=== PATIENT | female | born 1960 | race Caucasian/White ===

== ENCOUNTER 2019-11-19 11:59 | Day surgery (SDC) | payer MEDICAID ==
[2019-11-12 15:21] LABS: EOSINOPHILS # (AUTO) 0.1 X10'3 (0-0.9); LYMPHOCYTES # (AUTO) 1.1 X10'3 (1.1-4.8); MEAN CORPUSCULAR HEMOGLOBIN 24.5 PG (27.0-31.0); MEAN CORPUSCULAR HGB CONC 31.1 g/dL (33.0-36.5); MEAN CORPUSCULAR VOLUME 78.6 FL (78-98); MEAN PLATELET VOLUME 7.5 FL (7.4-10.4); MONOCYTES # (AUTO) 0.3 X10'3 (0-0.9); MONOCYTES % (AUTO) 7.4 % (2-12); NEUTROPHILS # (AUTO) 2.7 X10'3 (1.8-7.7); NEUTROPHILS % (AUTO) 63.6 % (42-75); PRE OP HEMATOCRIT 28.1 % (35.0-45.0); PRE OP PLATELET COUNT 344 X10'3 (140-440); RED BLOOD COUNT 3.57 X10'6 (4.20-5.60); RED CELL DISTRIBUTION WIDTH 20.2 % (11.5-14.5)
[2019-11-12 15:23] LABS: PRE OP HEMOGLOBIN 8.7 g/dL (12.0-16.0)
[2019-11-12 15:41] LABS: ALBUMIN 3.6 G/DL (3.4-5.0); ALKALINE PHOSPHATASE 80 IU/L (46-116); BLOOD UREA NITROGEN 17 MG/DL (7-18); CALCIUM 8.4 MG/DL (8.5-10.1); CHLORIDE 105 MMOL/L (99-107); CREATININE 0.85 MG/DL (0.40-0.90); PRE OP ALT 18 U/L (30-65); PRE OP ANION GAP 9 (8-16); PRE OP AST 15 U/L (10-37); PRE OP BILIRUB, TOTAL 0.2 MG/DL (0.0-1.0); PRE OP GLUCOSE 94 MG/DL (70-104); PRE OP POTASSIUM 3.7 MMOL/L (3.4-5.1); PRE OP SODIUM 141 MMOL/L (135-145); TOTAL CARBON DIOXIDE 27.3 MMOL/L (24-32); TOTAL PROTEIN 7.3 G/DL (6.4-8.2); eGFR 69 ML/MIN
[2019-11-12 15:49] LABS: ANISOCYTOSIS 3+; MICROCYTOSIS 1+; PLATELET ESTIMATE NORMAL
[2019-11-12 15:50] LABS: HYPOCHROMASIA 1+
[~2019-11-19] VITALS: Ht 157.5 cm; Wt 64.4 kg
[2019-11-19] VITALS (12 sets, daily range): BP systolic 129–167; BP diastolic 68–84
[~2019-11-19 11:59] MED LIST: CYAN10006 IM; FERR325T28 PO; OMEP20TA23 PO; SUCR1TAB34 PO; SYN0.088T PO; VANCOMYCIN INJ 1000 MG in NORMAL SALINE 250ml IV.SOLN IV ONE; ceFAZolin 2gm in dextrose, iso 50 ML IV ONE; famotidine 20mg tablet PO ONE; ringers solution, lacted 1,000 ML IV SCH
[2019-11-19] MEDS ORDERED: LIDOcaine 0.5% (5mg/ml) 50ml vial ONE (13:03)
[2019-11-19] MEDS ORDERED: methylPREDNISolone sod succ 125mg/2ml vial ONE (14:02)
[2019-11-19] MEDS ORDERED: BUPIVAcaine/PF 2.5 mg/ml (0.25%) 30ml vial ONE (14:02)
[2019-11-19] MEDS ORDERED: midazolam 2 mg/2 ml injection ONE (14:13)
[2019-11-19] MEDS ORDERED: fentaNYL/PF 50MCG/1 ML 2ML syringe ONE (14:13)
[2019-11-19] MEDS ORDERED: propofol inj 20 ML IV ONE (14:43)
--- NOTE | 2019-11-19 14:54 | NUR ---
RECEIVED FROM OR VIA [facility] ACCOMPANIED BY ANESTHESIOLOGIST DR PLAZA, REPORT GIVEN. PT DROWSY BUT AWAKENS EASILY WITH NO COMPLAINT OF PAIN. 20 GAUGE PIV L WRIST PATENT AND RUNNING LR AT 100 ML/HR. R WRIST DRESSING OF XEROFORM, 4X4, WEBRIL, BIAS AND SPLINT CDI. GOOD CAP REFILL, SKIN PINK AND WARM, PPULSES PRESENT (UNABLE TO PALPATE R RADIAL COVERED), PAVON, ABD SOFT, RUE ELEVATED WITH ICE APPLIED.
[2019-11-19] MEDS ORDERED: proCHLORperazine 10 MG/2 ml inj IV PRN (14:55)
[2019-11-19] MEDS ORDERED: ringers solution, lacted 1,000 ML IV SCH (14:55)
[2019-11-19] MEDS ORDERED: morphine 2 MG/ML inj. syringe IV PRN (14:55)
[2019-11-19] MEDS ORDERED: ondansetron/PF 4mg/2ml inj IV PRN (14:55)
[2019-11-19] MEDS ORDERED: morphine 4 MG/ML inj SYRINge IV PRN (14:55)
[2019-11-19] MEDS ORDERED: HYDROmorphone inj. 0.5 MG/0.5 ML DISP.SYRIN IV PRN ×2 (14:55)
[2019-11-19] MEDS ORDERED: meperidine/PF 25mg/ml syringe IV PRN (14:55)
[2019-11-19] MEDS ORDERED: acetaminophen 1,000mg/100ml IV 100 ML IV PRN (14:55)
--- NOTE | 2019-11-19 16:44 | NUR ---
PT AWAKE AND ALERT WITH NO COMPLAINT OF PAIN. 20 GAUGE PIV L WRIST DC/D CATH TIP INTACT. R WRIST DRESSING OF XEROFORM, 4X4, WEBRIL, BIAS AND SPLINT CDI. GOOD CAP REFILL, SKIN PINK AND WARM, PPULSES PRESENT (UNABLE TO PALPATE R RADIAL COVERED), PAVON, ABD SOFT, VSS. TOLERATING FLUIDS, ABLE TO DRESS SELF, AMBULATE, AND VOID. DISCHARGE INSTRUCTIONS GIVEN AND PT VERBALIZED UNDERSTANDING. TRANSPORTED VIA WHEELCHAIR TO FRIEND IN PRIVATE VEHICLE TO HOME.
== END 2019-11-19 16:44 | disposition home or self-care (01) ==
LOC: PAS 11:59 → EDBD 13:30 → PAS 16:44
PROVIDERS: ATTEND Orthopaedic Surgery
DX: G56.01 Carpal tunnel syndrome, right upper limb (principal); G56.21 Lesion of ulnar nerve, right upper limb; I10 Essential (primary) hypertension; D64.9 Anemia, unspecified; F31.9 Bipolar disorder, unspecified; E03.9 Hypothyroidism, unspecified; G47.33 Obstructive sleep apnea (adult) (pediatric); E66.8 Other obesity; Z68.26 Body mass index [BMI] 26.0-26.9, adult; Z98.890 Other specified postprocedural states; Z90.721 Acquired absence of ovaries, unilateral; F17.210 Nicotine dependence, cigarettes, uncomplicated; Z88.1 Allergy status to other antibiotic agents; Z88.2 Allergy status to sulfonamides; Z79.899 Other long term (current) drug therapy; Z20.828 Contact with and (suspected) exposure to other viral communicable diseases; Z87.442 Personal history of urinary calculi; Z87.19 Personal history of other diseases of the digestive system
CPT/HCPCS: 36415; 64719; 64721; 71046; 80053; 82948; 85025; 87635; 93005; A6222; J2001; J2250; J2704; J2930; J3010; J3370; J3490; 85008; A4215; A6449; A7000; J7120

== ENCOUNTER 2020-01-21 13:53 | Day surgery (SDC) | payer MEDICAID ==
[2020-01-13 16:15] LABS: BASOPHILS # (AUTO) 0.1 X10'3 (0-0.2); BASOPHILS % (AUTO) 1.1 % (0-1); EOSINOPHILS # (AUTO) 0.1 X10'3 (0-0.9); EOSINOPHILS % (AUTO) 1.5 % (0-6); LYMPHOCYTES # (AUTO) 1.2 X10'3 (1.1-4.8); MEAN CORPUSCULAR HEMOGLOBIN 22.9 PG (27.0-31.0); MEAN CORPUSCULAR HGB CONC 31.4 g/dL (33.0-36.5); MEAN CORPUSCULAR VOLUME 72.8 FL (78-98); MEAN PLATELET VOLUME 7.4 FL (7.4-10.4); MONOCYTES # (AUTO) 0.4 X10'3 (0-0.9); MONOCYTES % (AUTO) 8.7 % (2-12); NEUTROPHILS # (AUTO) 2.9 X10'3 (1.8-7.7); NEUTROPHILS % (AUTO) 62.7 % (42-75); PRE OP HEMATOCRIT 25.6 % (35.0-45.0); PRE OP PLATELET COUNT 324 X10'3 (140-440); RED BLOOD COUNT 3.51 X10'6 (4.20-5.60)
[2020-01-13 16:29] LABS: ALBUMIN 3.6 G/DL (3.4-5.0); ALBUMIN/GLOBULIN RATIO 0.9 (1.1-1.5); ALKALINE PHOSPHATASE 84 IU/L (46-116); BLOOD UREA NITROGEN 17 MG/DL (7-18); BUN/CREATININE RATIO 17.2 (6.6-38.0); CALCIUM 9.3 MG/DL (8.5-10.1); CHLORIDE 108 MMOL/L (99-107); CREATININE 0.99 MG/DL (0.40-0.90); PRE OP ALT 24 U/L (30-65); PRE OP ANION GAP 4 (8-16); PRE OP AST 17 U/L (10-37); PRE OP BILIRUB, TOTAL 0.2 MG/DL (0.0-1.0); PRE OP GLUCOSE 81 MG/DL (70-104); PRE OP POTASSIUM 3.8 MMOL/L (3.4-5.1); PRE OP SODIUM 143 MMOL/L (135-145); TOTAL CARBON DIOXIDE 30.9 MMOL/L (24-32); TOTAL PROTEIN 7.4 G/DL (6.4-8.2); eGFR 58 ML/MIN
[~2020-01-21] VITALS: Ht 157.5 cm; Wt 66.2 kg
[~2020-01-21 13:53] MED LIST changes: -FERR325T28 PO; +LEVO150T8 PO; -SYN0.088T PO; -ceFAZolin 2gm in dextrose, iso 50 ML IV ONE; +cefazolin/dext.iso 2gm/50ml 50 ML IV ONE
[2020-01-21 14:00] VITALS: BP 149/77
[2020-01-21] MEDS ORDERED: ondansetron/PF 4mg/2ml inj IV PRN (14:50)
[2020-01-21] MEDS ORDERED: acetaminophen 1,000mg/100ml IV 100 ML IV PRN (14:50)
[2020-01-21] MEDS ORDERED: morphine 2 MG/ML inj. syringe IV PRN (14:50)
[2020-01-21] MEDS ORDERED: proCHLORperazine 10 MG/2 ml inj IV PRN (14:50)
[2020-01-21] MEDS ORDERED: ringers solution, lacted 1,000 ML IV SCH (14:50)
[2020-01-21] MEDS ORDERED: hydrALAZINE 20mg/ml inj. IV PRN (14:50)
[2020-01-21] MEDS ORDERED: morphine 4 MG/ML inj SYRINge IV PRN (14:50)
[2020-01-21] MEDS ORDERED: meperidine/PF 25mg/ml syringe IV PRN ×3 (14:50)
[2020-01-21] MEDS ORDERED: labetalol 20mg/4ml (5mg/ml) syringe IV PRN (14:50)
[2020-01-21] MEDS ORDERED: LIDOcaine 0.5% (5mg/ml) 50ml vial ONE (15:39)
[2020-01-21] MEDS ORDERED: BUPIVAcaine/PF 2.5 mg/ml (0.25%) 30ml vial ONE (16:00)
[2020-01-21] MEDS ORDERED: methylPREDNISolone sod succ 125mg/2ml vial ONE (16:00)
[2020-01-21] MEDS ORDERED: fentaNYL/PF 50MCG/1 ML 2ML syringe ONE (16:45)
[2020-01-21] MEDS ORDERED: midazolam 2 mg/2 ml injection ONE (16:46)
[2020-01-21] MEDS ORDERED: propofol inj 20 ML IV ONE (16:58)
[2020-01-21 17:38] VITALS: BP 139/77
--- NOTE | 2020-01-21 17:38 | NUR ---
VSS, FOLLOWS COMMANDS. LEFT UE ELEVATED ON A PILLOW WITH ICE TO WRIST. LEFT FA/HAND SPLINT WITH MARY WRAPS CDI. MOVES LEFT FINGERS/THUMB WELL WITH [employer] ATTENDANT. DENIES PAIN WHEN ASKED. IV RIGHT FA #22 PATENT LR 100MLS/HR. Addendum: 01/21/20 at 1810 by Rekha Vazquez RN Amended: Links added.
[2020-01-21 17:48] VITALS: BP 142/82
[2020-01-21 17:58] VITALS: BP 154/83
[2020-01-21 18:08] VITALS: BP 153/82
[2020-01-21 18:18] VITALS: BP 148/80
--- NOTE | 2020-01-21 18:48 | NUR ---
VSS. STATES READINESS TO DC HOME. AMB TO BR-VOID QS. LEFT FINGERS WITH GOOD MOVEMENT AND LADLE POURER. IV DC'D WITH CANNULA INTACT AND PRESSURE DSG APPLIED. DC INSTRUCTIONS REVIEWED WITH PT WHO VERBALIZES UNDERSTANDING. DC HOME VIA WC TO PVT AUTO WITH JUYD TO RECEIVE. Addendum: 01/21/20 at 1858 by Rekha Vazquez RN Amended: Links added.
== END 2020-01-21 18:48 | disposition home or self-care (01) ==
LOC: PRE-OP 13:53
PROVIDERS: ATTEND Orthopaedic Surgery
DX: G56.02 Carpal tunnel syndrome, left upper limb (principal); G56.22 Lesion of ulnar nerve, left upper limb; G47.33 Obstructive sleep apnea (adult) (pediatric); I10 Essential (primary) hypertension; F31.9 Bipolar disorder, unspecified; D64.9 Anemia, unspecified; F17.210 Nicotine dependence, cigarettes, uncomplicated; E66.8 Other obesity; Z68.26 Body mass index [BMI] 26.0-26.9, adult; E03.9 Hypothyroidism, unspecified; Z88.1 Allergy status to other antibiotic agents; Z88.2 Allergy status to sulfonamides; Z20.828 Contact with and (suspected) exposure to other viral communicable diseases; Z79.899 Other long term (current) drug therapy; Z87.442 Personal history of urinary calculi; Z98.890 Other specified postprocedural states; Z90.721 Acquired absence of ovaries, unilateral
CPT/HCPCS: 36415; 64719; 64721; 80053; 85025; 87635; A6222; J2001; J2250; J2704; J2930; J3010; J3370; J3490; A4215; A4618; A6449; J7120

== ENCOUNTER 2020-09-17 09:35 | Emergency (ER) | payer MEDICAID ==
[~2020-09-17] VITALS: Ht 157.5 cm; Wt 65.9 kg
[~2020-09-17 09:35] MED LIST changes: -VANCOMYCIN INJ 1000 MG in NORMAL SALINE 250ml IV.SOLN IV ONE; -cefazolin/dext.iso 2gm/50ml 50 ML IV ONE; -famotidine 20mg tablet PO ONE; -ringers solution, lacted 1,000 ML IV SCH
[2020-09-17] MEDS ORDERED: morphine 4 MG/ML inj SYRINge IV ONE (10:40)
[2020-09-17] MEDS ORDERED: normal saline 1000ML IV soln IVB ONE (10:40)
[2020-09-17] MEDS ORDERED: ondansetron/PF 4mg/2ml inj IV ONE (10:40)
[2020-09-17 10:50] LABS: BASOPHILS # (AUTO) 0.1 X10'3 (0-0.2); BASOPHILS % (AUTO) 0.8 % (0-1); EOSINOPHILS # (AUTO) 0.1 X10'3 (0-0.9); HEMATOCRIT 32.3 % (35.0-45.0); HEMOGLOBIN 9.9 g/dl (12.0-16.0); LYMPHOCYTES # (AUTO) 1.2 X10'3 (1.1-4.8); LYMPHOCYTES % (AUTO) 17.7 % (21-51); MEAN CORPUSCULAR HEMOGLOBIN 20.4 PG (27.0-31.0); MEAN CORPUSCULAR HGB CONC 30.6 g/dL (33.0-36.5); MEAN CORPUSCULAR VOLUME 66.6 FL (78-98); MEAN PLATELET VOLUME 7.2 FL (7.4-10.4); MONOCYTES # (AUTO) 0.4 X10'3 (0-0.9); MONOCYTES % (AUTO) 6.6 % (2-12); NEUTROPHILS % (AUTO) 73.9 % (42-75); PLATELET COUNT 346 X10'3 (140-440); RED BLOOD COUNT 4.85 X10'6 (4.20-5.60); RED CELL DISTRIBUTION WIDTH 20.1 % (11.5-14.5); WHITE BLOOD COUNT 6.8 X10'3 (4.5-11.0)
[2020-09-17 10:56] LABS: ALANINE AMINOTRANSFERASE 33 U/L (12-78); ALBUMIN 3.6 G/DL (3.4-5.0); ALBUMIN/GLOBULIN RATIO 0.8 (1.1-1.5); ALKALINE PHOSPHATASE 94 IU/L (46-116); ANION GAP 8 (8-16); ASPARTATE AMINO TRANSFERASE 22 U/L (10-37); BILIRUBIN,TOTAL 0.3 MG/DL (0.1-1.0); BLOOD UREA NITROGEN 16 MG/DL (7-18); BUN/CREATININE RATIO 18.6 (6.6-38.0); CALCIUM 8.7 MG/DL (8.5-10.1); CHLORIDE 103 MMOL/L (99-107); CREATININE 0.86 MG/DL (0.40-0.90); GLUCOSE 99 MG/DL (70-104); LIPASE 106 U/L (73-393); SODIUM 138 MMOL/L (135-145); TOTAL CARBON DIOXIDE 26.6 MMOL/L (24-32); TOTAL PROTEIN 7.9 G/DL (6.4-8.2); eGFR 68 ML/MIN
[2020-09-17 11:00] LABS: URINE HCG NEGATIVE (NEG)
[2020-09-17 11:03] LABS: CLARITY,URINE SLIGHTLY CLOUDY (Clear); COLOR,URINE YELLOW (Yellow); GLUCOSE, URINE NEGATIVE (Neg); KETONES,URINE NEGATIVE (Neg); LEUKOCYTE ESTERASE ,URINE MODERATE (Neg); NITRITES, URINE POSITIVE (Neg); OCCULT BLOOD,URINE LARGE (Neg); PROTEIN,URINE NEGATIVE (Neg); UROBILINOGEN,URINE 0.2 E.U/dL (0.2-1.0)
[2020-09-17 11:06] LABS: ANISOCYTOSIS 3+; HYPOCHROMASIA 1+; MICROCYTOSIS 2+; PLATELET ESTIMATE NORMAL; POLYCHROMASIA FEW
--- NOTE | 2020-09-17 11:06 | NUR ---
TC FROM ROOMMATE, JUDY AND CONTACT NUMBER IS [phone]
[2020-09-17 11:07] LABS: STOMATOCYTES FEW; TEAR DROP CELLS FEW
[2020-09-17 11:07] LABS: UA COLLECTION TYPE CLN CATCH MIDSTREAM
[2020-09-17 11:18] LABS: RBC,URINE 20-50 /HPF (0-2); SQUAMOUS EPITHELIAL CELL,UR FEW /LPF (FEW)
[2020-09-17 11:19] LABS: BACTERIA,URINE 3+ /HPF (Neg)
[2020-09-17] MEDS: morphine 2 MG/ML inj. syringe IV PRN ×2 (12:27→14:11)
[2020-09-17] MEDS ORDERED: tamsulosin 0.4mg capsule PO ONE (13:40)
[2020-09-17] MEDS ORDERED: ONDA8TAB13 PO (13:41)
[2020-09-17] MEDS ORDERED: FLO0.4C PO (13:41)
[2020-09-17] MEDS ORDERED: HYDR-3965 PO (13:41)
[2020-09-17] MEDS ORDERED: HYDROcodone/acetaminophen 5mg/325mg tablet PO ONE (16:30)
[2020-09-17 16:34] VITALS: BP 171/84
--- NOTE | 2020-09-21 12:03 | NUR ---
PT CALLED REGARDING LAB RESULTS FOR VISIT ON 09/17. NO ANSWER, UNABLE TO LE[place] [facility] [place] MA[place] BOX F[place]
== END 2020-09-17 16:36 | disposition home or self-care (01) ==
LOC: ER 09:36
DX: N20.0 Calculus of kidney (principal); F12.90 Cannabis use, unspecified, uncomplicated; Z88.2 Allergy status to sulfonamides; Z88.1 Allergy status to other antibiotic agents; Z79.899 Other long term (current) drug therapy
CPT/HCPCS: 36415; 74176; 80053; 81001; 81025; 83690; 85008; 85025; 87088; 87186; 96361; 96374; 96375; 96376; 99285; J2270; J2405; J7030